=== PATIENT | male | born 2000 | race Caucasian/White ===

== ENCOUNTER 2024-11-19 16:15 | Outpatient (CLI) | payer OTHER, SELFPAY ==
--- NOTE | ~2024-11-19 | XR_ITS ---
EXAMINATION: XR chest 2V 11/19/2024 16:34 INDICATION: Chest wall deformity PROCEDURE: 2 view chest COMPARISON: 05/20/2014 FINDINGS: The lungs are clear. The cardiomediastinal silhouette is within normal limits. There are no pleural effusions. There is no pneumothorax suspected. IMPRESSION: 1: NO ACUTE CARDIOPULMONARY DISEASE. Reviewed, dictated and finalized at location O.
--- OUTSIDE RECORDS SUMMARY | 2024-11-19 17:42 | XMS_ITS | Clinical Summary ---
Author Organization [facility] Address [address] [place] [address] Care Team Providers Care Roundhouse Supervisor Name Role Phone Unavailable Primary Care Provider Unavailabl e Source Comments [facility],non-owned Affiliates and Associated Physician Practices is amultiple site organization consisting of ambulatory clinics and hospital sitesin [place], [place], [place] and [place]. This disclosure is being madepursuant to the Care Everywhere program and may not contain all information available regarding this patient. Last updated 17.[facility] Allergies Active Allergy Reactions Criticality Noted Date Comments Penicillins Anaphylaxis High 02/16/2014 Penicillins Rash Medium 03/31/2019 Medications * This document contains information received from the source organization and may not represent a complete record from that organization. * Be aware that medications may not be up to date on this document. Alwaysverify current medications with the patient. ARIPiprazole (ABILIFY) 5 MG tabletIndicatio ns:Major Depressive Disorder,mood disorder Take 0.5 tablets by mouth daily with dinner Reasons: Major Depressive Disorder, mood disorder 15 tablet 1 0 Active vitamin D, ergocalciferol, (DRISDOL) 1.25 MG (39918 UT) capsuleIndicati ons:Vitamin D Deficiency Take 1 capsule by mouth every 7 days Reasons: Vitamin D Deficiency 4 capsule 3 0 Active Active Problems Problem Noted Date Diagnosed Date Depression 04/01/2019 Left wrist injury 07/07/2015 Closed displaced fracture of middle phalanx of left index finger 02/16/2014 Social History Tobacco Use Types Packs/Day Years Used Date Smoking Tobacco: Never Smokeless Tobacco: Never Alcohol Use Standard Drinks/Week Comments Yes 0 (1 standard drink = 0.6 oz pur e alcohol) occas Sex and Gender Information Value Date Recorded Sex Assigned at Not on file Legal Sex Male 1:53 PM TRANSMITTER CHIEF Gender Identity Not on file Sexual Orientation Not on file Last Filed Vital Signs Vital Sign Reading Time Taken Comments Blood Pressure 118/68 04/07/2019 12:38 PM TRANSMITTER CHIEF Pulse 84 04/07/2019 12:38 PM TRANSMITTER CHIEF Temperature 36.9 C (98.4 F) 04/07/2019 12:38 PM TRANSMITTER CHIEF Respiratory Rate 17 04/07/2019 12:38 PM TRANSMITTER CHIEF Oxygen Saturation 98% 04/07/2019 12:38 PM TRANSMITTER CHIEF Inhaled Oxygen Concentration - - Weight 54.9 kg (121 lb) 04/05/2019 8:00 AM TRANSMITTER CHIEF Height 182 cm (5' 11.65) 04/01/2019 12:38 PM CS T Body Mass Index 16.57 04/01/2019 12:38 PM TRANSMITTER CHIEF Plan of Treatment Health Maintenance Due Date Last Done Comments HIV SCREENING 2017 HPV VACCINE (1 - Male 3-dose series) 2017 MENINGOCOCCAL (Group B) VACC INE SHARED DECISION-MAKING (1 of 2 - Standard) 2018 HEPATITIS C SCREENING 03/09/2020 DTAP/TDAP/TD VACCINES (1 - Tdap) 2021 HEPATITIS B VACCINE (1 of 3 - 19+ 3-dose series) 2021 DEPRESSION SCREENING 02/26/2024 COVID-19 VACCINE (1 - 2023-2 5 season) 2024 INFLUENZA VACCINE (#1) 2024 ZOSTER VACCINE (1 of 2) 2052 HIB VACCINE Aged Out No longer eligi ble based on patient's age to complete this topic MENINGOCOCCAL GROUPS A/C/Y/W VACCINE Aged Out No longer eligible b ased on patient's age to complete this topic PNEUMOCOCCAL VACCINE Aged Out No long er eligible based on patient's age to complete this topic Insurance [employer] [facility] Advance Directives * Full Code (Latest Code Status on File) Date Activated Date Inactivated Comments 04/01/2019 12:25 PM 04/07/2019 9:49 PM
--- OUTSIDE RECORDS SUMMARY | 2024-11-19 17:43 | XMS_ITS | Clinical Summary ---
Author Organization [facility] Address [facility] [place] [address] Care Team Providers Care Roll On Man Name Role Phone None, Provider MD Primary Care Provider Unavaila ble Allergies Active Allergy Reactions Criticality Noted Date Comments Penicillins Hives 11/26/2021 Medications HYDROcodone-acet aminophen (NORCO) 5-325 MG tabletIndication s:Acute Pain < 7 Day Supply Take 1 tablet by mouth every 6 (six) hours as needed for Pain. Indications : Acute Pain < 7 Day Supply 15 tablet 11/26/2021 Active ibuprofen (MOTRIN) 400 MG tablet Take 1 tablet (400 mg total) by mouth every 4 (four) hours as needed for Pain. 30 tablet 11/26/2021 Active Active Problems Problem Noted Date Diagnosed Date Appendicitis 11/26/2021 Family History Medical History Relation Comments Coronary artery disease Neg Hx Diabetes Neg Hx Social History Tobacco Use Types Packs/Day Years Used Date Smoking Tobacco: Never Smokeless Tobacco: Never Alcohol Use Standard Drinks/Week Comments Not Currently 0 (1 standard drink = 0.6 oz pur e alcohol) Sex and Gender Information Value Date Recorded Sex Assigned at Not on file Legal Sex Male 2:03 AM CDT Gender Identity Not on file Sexual Orientation Not on file Last Filed Vital Signs Vital Sign Reading Time Taken Comments Blood Pressure 129/64 11/26/2021 11:30 AM CDT Pulse 70 11/26/2021 11:30 AM CDT Temperature 37.2 C (99 F) 11/26/2021 9:39 AM CDT Respiratory Rate 8 11/26/2021 11:3 0 AM CDT Oxygen Saturation 95% 11/26/2021 11: 30 AM CDT Inhaled Oxygen Concentration - - Weight 57.1 kg (125 lb 14.1 oz) 11/26/2021 6:29 AM CDT Height 182.9 cm (6') 11/26/2021 6:29 AM CDT Body Mass Index 17.07 11/26/2021 6:29 AM CDT Plan of Treatment Health Maintenance Due Date Last Done Comments Annual Physical 2005 HPV Vaccines (1 - Male 3-dose series) 2017 Hepatitis C 2020 Meningococcal B Vaccine (2 of 2 - Bexsero SCDM 2-dose series) 06/09/2020 12/10/2019 DTaP, Tdap and Td Vaccines (7 - Td or Tdap) 05/13/2023 05/12/2013, 09/15/2007, 09/20/2003, Additional history exists COVID-19 Vaccine (3 - season) 2024 11/20/2020, 10/23/2020 Hepatitis B Vaccines Completed 01/13/2003, 2002, 2002 Pneumococcal Vaccine: Pediatrics (0 to 5 Years) and At-Risk Patients (6 to 49 Years) Aged Out 04/26/2004, 2002, 2002, Additional history exists No longer eligible based on patient's age to complete this topic Meningococcal Vaccine Completed 12/10/2019, 014 RSV Immunizations Under 20 Months Aged Out No longer eligible based on patient's age to complete this topic Insurance [facility] Advance Directives * Full Code (Latest Code Status on File) Date Activated Date Inactivated Comments 11/26/2021 4:23 AM 11/26/2021 8:55 PM Care Teams Roll On Man Relationship Specialty Start Date End Date None, Provider, PCP - General 11/26/21
--- OUTSIDE RECORDS SUMMARY | 2024-11-19 17:43 | XMS_ITS | Clinical Summary ---
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 Gender Identity Not on file Sexual Orientation Not on file Plan of Treatment Health Maintenance Due Date Last Done Comments Hepatitis C Virus (HCV) Screening 2002 Human Papillomavirus (HPV) Immunization (1 - Male 3-dose series) 2017 Meningococcal B Immunization (2 of 2 - Bexsero SCDM 2-dose series) 06/09/2020 12/10/2019 SARS-COV-2 Immunization (3 - season) 2023 11/20/2020, 10/23/2020 Influenza Immunization (#1) 2024 Respiratory Syncytial Virus (RSV) Immunization (Adult) (1 - 1-dose 75+ series) 2077 Hepatitis B Immunization Completed 003, 2002, 2002 Pneumococcal Immunization Combined Aged Out 04/26/2004, 2002, 2002, Additional history exists No longer eligible based on patient's age to complete this topic Measles Mumps Rubella (MMR) Immunization Discontinued 09/15/2007, 07/16/2003 Polio (IPV) Immunization Discontinued 008, 09/20/2003, 2002, Additional history exists Varicella Immunization Discontinued 09/15/2007, 2003 DTaP/Tdap/Td Immunization Discontinued 2013, 09/15/2007, 09/20/2003, Additional history exists Hepatitis A Immunization Discontinued 05/12/2013, 08/26 TdaP Immunization Completed 05/12/2013 Meningococcal Immunization (ACWY) Completed 12/10/2019, 05/12/2013 Rotavirus Immunization Aged Out No lo nger eligible based on patient's age to complete this topic
== END 2024-11-19 16:16 | disposition home or self-care (01) ==
LOC: ANHIMG 16:24
DX: M95.4 Acquired deformity of chest and rib (principal)
CPT/HCPCS: 71046

== ENCOUNTER 2024-12-10 14:49 | Outpatient (CLI) | payer OTHER, SELFPAY ==
--- NOTE | ~2024-12-10 | US_ITS ---
EXAMINATION: US soft tissue chest, 12/10/2024 14:52 CDT HISTORY: Mass of chest wall Comparison: None Technique: Linda-scale and color Doppler images were obtained. Findings: Correlating with the palpable area there is no abnormal mass or mass effect, no abnormal flow IMPRESSION: Unremarkable exam. If symptoms persist CT or MRI is suggested Reviewed, dictated and finalized at location P.
== END 2024-12-10 14:50 | disposition home or self-care (01) ==
LOC: MICIMG 14:50
DX: R22.2 Localized swelling, mass and lump, trunk (principal)
CPT/HCPCS: 76604

== ENCOUNTER 2025-01-13 13:11 | Outpatient (CLI) | payer OTHER, SELFPAY ==
--- OUTSIDE RECORDS SUMMARY | 2025-01-13 19:22 | XMS_ITS | Clinical Summary ---
Author Organization [facility] Address [facility] [place] [address] Care Team Providers Care Fire Equipment Repairer Inspector Name Role Phone None, Provider MD Primary [...] Vaccine (3 - season) 2024 11/20/2020, 10/23/2020 Influenza Adult (#1) 2024 Hepatitis B Vaccines Completed 01/13/2003, 2002, 2002 Pneumococcal Vaccine: Pediatrics (0 to 5 Years) and At-Risk Patients (6 to 49 Years) Aged Out 04/26/2004, 2002, 2002, Additional history exists No longer eligible based on patient's age to complete this topic Hepatitis A Vaccines Completed 05/12/2013, 09/15/19 08 Meningococcal Vaccine Completed 12/10/2019, 014 RSV Immunizations Under 20 Months Aged Out No longer eligible based on patient's age to complete this topic Insurance [facility] Member Subscriber Plan / Payer (Ef fective 2021-Present) Name:Miguel A Ivy Relation to Subscriber:Child Name:MANNY IVY Date of :1978 Address: [address] [place] [address] [place] [address] Payer ID:[id number] (NAIC) Type:Not on file Address: [place] [id number] [place] [id number] Advance Directives * Full Code (Latest Code Status on File) Date Activated Date Inactivated Comments 11/26/2021 4:23 AM 11/26/2021 8:55 PM Care Teams Fire Equipment Repairer Inspector Relationship Specialty Start Date End Date None, Provider, PCP - General 11/26/21
--- OUTSIDE RECORDS SUMMARY | 2025-01-13 19:22 | XMS_ITS | Clinical Summary ---
Author Organization [facility] Address [address] [place] [address] Care Team Providers Care Stone Hand Name Role Phone Unavailable Primary Care Provider Unavailabl e Source Comments [facility],non-owned Affiliates and Associated Physician Practices is amultiple site organization consisting of ambulatory clinics and hospital sitesin [place], [place] and [place]. This disclosure is being madepursuant to the Care Everywhere program and may not contain all information available regarding this patient. Last updated 17.[facility] Allergies Active Allergy Reactions Criticality Noted Date [...] Active vitamin D, ergocalciferol, (DRISDOL) 1.25 MG (58600 UT) capsuleIndicati ons:Vitamin D Deficiency Take 1 [...] on file Legal Sex Male 1:53 PM FUNERAL DIRECTOR/EMBALMER Gender Identity Not on file Sexual Orientation Not on file Last Filed Vital Signs Vital Sign Reading Time Taken Comments Blood Pressure 118/68 04/07/2019 12:38 PM FUNERAL DIRECTOR/EMBALMER Pulse 84 04/07/2019 12:38 PM FUNERAL DIRECTOR/EMBALMER Temperature 36.9 C (98.4 F) 04/07/2019 12:38 PM FUNERAL DIRECTOR/EMBALMER Respiratory Rate 17 04/07/2019 12:38 PM FUNERAL DIRECTOR/EMBALMER Oxygen Saturation 98% 04/07/2019 12:38 PM FUNERAL DIRECTOR/EMBALMER Inhaled Oxygen Concentration - - Weight 54.9 kg (121 lb) 04/05/2019 8:00 AM FUNERAL DIRECTOR/EMBALMER Height 182 cm (5' 11.65) 04/01/2019 12:38 PM CS T Body Mass Index 16.57 04/01/2019 12:38 PM FUNERAL DIRECTOR/EMBALMER Plan of Treatment Health Maintenance Due Date Last Done Comments HIV SCREENING 2017 HPV VACCINE (1 - Male 3-dose series) 2017 MENINGOCOCCAL (Group B) VACC INE SHARED DECISION-MAKING (1 of 2 - Standard) 2018 HEPATITIS C SCREENING 03/09/2020 DTAP/TDAP/TD VACCINES (1 - Tdap) 2021 HEPATITIS B VACCINE (1 of 3 - 19+ 3-dose series) 2021 DEPRESSION SCREENING 02/26/2024 COVID-19 VACCINE (1 - 2024-2 6 season) 2024 INFLUENZA VACCINE (#1) 2024 ZOSTER VACCINE (1 of 2) 2052 HIB VACCINE Aged Out No longer eligi ble based on patient's age to complete this topic MENINGOCOCCAL GROUPS A/C/Y/W VACCINE Aged Out No longer eligible b ased on patient's age to complete this topic PNEUMOCOCCAL VACCINE Aged Out No long er eligible based on patient's age to complete this topic Insurance [facility] MEDICARE [facility] Advance Directives * Full Code (Latest Code Status on File) Date Activated Date Inactivated Comments 04/01/2019 12:25 PM 04/07/2019 9:49 PM
--- OUTSIDE RECORDS SUMMARY | 2025-01-13 19:22 | XMS_ITS | Clinical Summary ---
Author Organization [facility] Care Team Providers Care Monomer Recovery Operator Name Role Phone Unavailable Primary Care Provider Unavailabl e Social History Tobacco Use Types Packs/Day Years Used Date Smoking Tobacco: Never Assessed Sex and Gender Information Value Date Recorded Sex Assigned at Not on file Legal Sex Male 3:57 PM MEDICAL SURGERY NURSE Gender Identity Not on file Sexual Orientation Not on file Plan of Treatment Health Maintenance Due Date Last Done Comments Hepatitis C Virus (HCV) Screening 2002 Human Papillomavirus (HPV) Immunization (1 - Male 3-dose series) 2017 Meningococcal B Immunization (2 of 2 - Bexsero SCDM 2-dose series) 06/09/2020 12/10/2019 Influenza Immunization (#1) 2024 SARS-COV-2 Immunization (3 - season) 2024 11/20/2020, 10/23/2020 Respiratory Syncytial Virus (RSV) Immunization (Adult) (1 - 1-dose 75+ series) 2077 Hepatitis B Immunization Completed 003, 2002, 2002 Pneumococcal Immunization Combined Aged Out 04/26/2004, 2002, 2002, Additional history exists No longer eligible based on patient's age to complete this topic Measles Mumps Rubella (MMR) Immunization Discontinued 09/15/2007, 07/16/2003 Polio (IPV) Immunization Discontinued 008, 09/20/2003, 2002, Additional history exists Varicella Immunization Completed 09/15/2007, 2003 DTaP/Tdap/Td Immunization Discontinued 2013, 09/15/2007, 09/20/2003, Additional history exists Hepatitis A Immunization Discontinued 05/12/2013, 08/26 TdaP Immunization Completed 05/12/2013 Meningococcal Immunization (ACWY) Completed 12/10/2019, 05/12/2013 Rotavirus Immunization Aged Out No lo nger eligible based on patient's age to complete this topic
--- NOTE | 2025-01-20 20:56 | WPDHOLTEREM ---
Holter/Event Monitor Holter/Event Monitor Date of procedure: 01/13/25 Holter/Event Procedure: 3-7 Day Holter Monitor Indications: Palpitations Conclusion: 1. 3 days holter monitor on 01/13/25. 2. Underlying rhythm is sinus rhythm. HR range 43-149 bpm; average HR 87 bpm. HR at 43 bpm was on 01/15/25 at 2:43 am. 3. There are rare premature supraventricular complexes. No supraventricular tachycardia. 4. There are occasional premature ventricular complexes. No ventricular tachycardia. 5. No significant pauses greater than 3 seconds. 6. Patient reports 1 episodes of symptoms of fluttering, irregular beats which demonstrates sinus rhythm at 87 bpm with PVC.
== END 2025-01-13 13:12 | disposition home or self-care (01) ==
LOC: ANHCARD 13:12
DX: I49.1 Atrial premature depolarization (principal); I49.3 Ventricular premature depolarization
CPT/HCPCS: 93242

== ENCOUNTER 2025-01-15 09:02 | Outpatient (CLI) | payer OTHER, SELFPAY ==
--- NOTE | ~2025-01-15 | CT_ITS ---
EXAMINATION:CT diagnostic chest wo con DATE: 01/15/2025 09:20 INDICATION: Palpitations TECHNIQUE: Computed tomography (CT) of the chest was performed without intravenous contrast. The dose-length product (DLP) was 154.38 mGy-cm. COMPARISON: None. FINDINGS: No consolidation effusion or pneumothorax. Lung parenchyma appears normal. Tiny pleural nodules in the left major fissure images 63 through 66 has benign appearance. Central and large airways are patent. Heart and great vessels normal size. No significant pericardial effusion or bulky lymphadenopathy. Bony thorax appears intact. No acute process seen in the visualized portions of the upper abdomen or extrathoracic soft tissues. IMPRESSION: 1. No gross acute intrathoracic process or cardiac mediastinal abnormality on this directed noncontrast exam. 2. Tiny benign appearing pleural nodular changes in the left major fissure. Reviewed, dictated and finalized at location A. R METAL PATTERNS IMPRESSION: 1. No gross acute intrathoracic process or cardiac mediastinal abnormality on t his directed noncontrast exam. 2. Tiny benign appearing pleural nodular changes in the left major fissure.
== END 2025-01-15 09:03 | disposition home or self-care (01) ==
LOC: MICIMG 09:03
DX: R22.2 Localized swelling, mass and lump, trunk (principal)
CPT/HCPCS: 71250